=== PATIENT | male | born 1980 | race Caucasian/White ===

== ENCOUNTER 2020-10-26 11:34 | Inpatient (IN) | payer OTHER ==
[2020-10-26 16:29] VITALS: BMI 25.5
[2020-10-26] MEDS ORDERED: MAGNESIUM CITRATE 300 ML BOTTLE PO PRN (19:17)
[2020-10-26] MEDS ORDERED: NICOTINE POLACRILEX 2 MG GUM BUC PRN (19:17)
[2020-10-26] MEDS ORDERED: ACETAMINOPHEN 325 MG TABLET (FP) PO PRN ×2 (19:17)
[2020-10-26] MEDS ORDERED: METHOCARBAMOL 500 MG TABLET PO PRN (19:17)
[2020-10-26] MEDS ORDERED: IBUPROFEN 400 MG TABLET (FP) PO PRN (19:17)
[2020-10-26] MEDS ORDERED: MAG HYDROX/AL HYDROX/SIMETH 30 ML UNIT-DOSE CUP PO PRN (19:17)
[2020-10-26] MEDS ORDERED: MENTHOL/PHENOL 1 EACH UD MM PRN (19:17)
[2020-10-26] MEDS ORDERED: ONDANSETRON *ODT* 4 MG TABLET SL PRN (19:17)
[2020-10-26] MEDS ORDERED: MAGNESIUM HYDROX 2400MG/30ML ORAL SUSPENSION 30 ML CUP PO PRN (19:17)
[2020-10-26] MEDS ORDERED: chlordiazePOXIDE HCL 25 MG CAPSULE PO PRN (19:17)
[2020-10-26] MEDS: MELATONIN 5 MG TABLETS PO SCH (22:50)
[2020-10-26] MEDS: THIAMINE HCL 100 MG TABLET (FP) PO SCH (22:50)
[2020-10-26] MEDS: hydrOXYzine PAMOATE 25 MG CAPSULE (FP) PO SCH (22:50)
[2020-10-26] MEDS: chlordiazePOXIDE HCL 25 MG CAPSULE PO SCH (22:51)
[2020-10-27] MEDS ORDERED: METHADONE HCL 10 MG TABLET ONE (04:21)
[2020-10-27] MEDS ORDERED: METHADONE HCL 40 MG DISPERSABLE TABLET ONE (04:22)
[2020-10-27] MEDS: chlordiazePOXIDE HCL 25 MG CAPSULE PO SCH ×4 (05:37→22:51)
[2020-10-27] MEDS: hydrOXYzine PAMOATE 25 MG CAPSULE (FP) PO SCH ×5 (05:38→22:51)
[2020-10-27] MEDS ORDERED: METHADONE 40 MG, METHADONE 10 MG PO SCH (06:00)
[2020-10-27] MEDS ORDERED: METHADONE HCL 10 MG TABLET PO ONE (06:00)
[2020-10-27] MEDS: PANTOPRAZOLE 20 MG TABLET PO SCH (10:33)
[2020-10-27] MEDS: PRENATAL VITAMINS W/ FOLIC ACID TABLET (FP) PO SCH (10:33)
[2020-10-27 11:18] LABS: MCHC 33.3 g/dl (32.0-35.9); MEAN CELL VOLUME 78.2 fl (80-96); MEAN PLT VOLUME 9.8 fl (7.5-11.1); PLATELET COUNT 172 K/MM3 (134-434); RBC 4.61 M/mm3 (4.00-5.60); RDW 15.8 % (11.9-15.9); WHITE BLOOD COUNT 3.3 K/mm3 (4.0-10.0)
[2020-10-27 11:21] LABS: POTASSIUM 4.3 mmol/L (3.5-5.1)
[2020-10-27 11:31] LABS: ALBUMIN 2.9 g/dl (3.4-5.0)
[2020-10-27 11:34] LABS: CREATININE 0.8 mg/dL (0.55-1.3)
[2020-10-27 11:35] LABS: TOT PROT 6.4 g/dl (6.4-8.2)
[2020-10-27 11:36] LABS: BILIRUBIN,TOTAL 1.3 mg/dL (0.2-1)
[2020-10-27] MEDS: CALCIUM CARBONATE 650 MG TABLET PO SCH (22:50)
[2020-10-27] MEDS: MELATONIN 5 MG TABLETS PO SCH (22:50)
[2020-10-27] MEDS: THIAMINE HCL 100 MG TABLET (FP) PO SCH (22:51)
[2020-10-28] MEDS ORDERED: chlordiazePOXIDE HCL 25 MG CAPSULE PO SCH (05:00)
[2020-10-28] MEDS: hydrOXYzine PAMOATE 25 MG CAPSULE (FP) PO SCH ×5 (07:02→22:44)
[2020-10-28] MEDS ORDERED: METHADONE HCL 10 MG TABLET PO ONE (09:44)
[2020-10-28] MEDS ORDERED: LORazepam 1 MG TABLET PO PRN (10:33)
[2020-10-28] MEDS: CALCIUM CARBONATE 650 MG TABLET PO SCH ×2 (10:34→22:44)
[2020-10-28] MEDS: PRENATAL VITAMINS W/ FOLIC ACID TABLET (FP) PO SCH (10:36)
[2020-10-28] MEDS ORDERED: METHADONE 40 MG, METHADONE 10 MG PO ONE (10:45)
[2020-10-28] MEDS ORDERED: METHADONE HCL 40 MG DISPERSABLE TABLET ONE (11:55)
[2020-10-28] MEDS ORDERED: METHADONE HCL 10 MG TABLET ONE (11:55)
[2020-10-28] MEDS: PANTOPRAZOLE 20 MG TABLET PO SCH (11:57)
[2020-10-28 12:31] LABS: BILIRUBIN,DIRECT 0.7 mg/dL (0.0-0.2)
[2020-10-28 12:32] LABS: BILIRUBIN,TOTAL 1.7 mg/dL (0.2-1); TOT PROT 6.5 g/dl (6.4-8.2)
[2020-10-28] MEDS: LORazepam 2 MG TABLET PO SCH ×2 (17:52→22:43)
[2020-10-28 22:43] LABS: PH,URINE 7.5 (5.0-8.0); URINE APPEARANCE TURBID; URINE BILIRUBIN 1+ (NEGATIVE); URINE COLOR DK YELLOW; URINE GLUCOSE (UA) NEGATIVE (NEGATIVE); URINE KETONE NEGATIVE (NEGATIVE); URINE LEUK ESTERASE NEGATIVE (NEGATIVE); URINE NITRITE NEGATIVE (NEGATIVE); URINE PROTEIN NEGATIVE (NEGATIVE)
[2020-10-28] MEDS: MELATONIN 5 MG TABLETS PO SCH (22:44)
[2020-10-28] MEDS: THIAMINE HCL 100 MG TABLET (FP) PO SCH (22:44)
[2020-10-28] MEDS: BISMUTH SUBSALICYLATE 524 MG/30 ML UD PO PRN (22:45)
[2020-10-29] MEDS ORDERED: chlordiazePOXIDE HCL 10 MG CAPSULE PO PRN
[2020-10-29] MEDS ORDERED: METHADONE HCL 10 MG TABLET ONE (04:40)
[2020-10-29] MEDS ORDERED: METHADONE HCL 40 MG DISPERSABLE TABLET ONE (04:41)
[2020-10-29] MEDS ORDERED: chlordiazePOXIDE HCL 10 MG CAPSULE PO SCH (05:00)
[2020-10-29] MEDS: hydrOXYzine PAMOATE 25 MG CAPSULE (FP) PO SCH ×3 (05:16→14:49)
[2020-10-29] MEDS: LORazepam 1 MG TABLET PO SCH ×2 (05:16→10:22)
[2020-10-29] MEDS: BISMUTH SUBSALICYLATE 524 MG/30 ML UD PO PRN ×2 (05:17→10:25)
[2020-10-29] MEDS ORDERED: METHADONE 40 MG, METHADONE 10 MG PO SCH (06:00)
[2020-10-29] MEDS ORDERED: METHADONE HCL 40 MG DISPERSABLE TABLET PO SCH (06:00)
[2020-10-29] MEDS: PRENATAL VITAMINS W/ FOLIC ACID TABLET (FP) PO SCH (10:21)
[2020-10-29] MEDS: CALCIUM CARBONATE 650 MG TABLET PO SCH (10:22)
[2020-10-29] MEDS: PANTOPRAZOLE 20 MG TABLET PO SCH (10:22)
[2020-10-29 10:39] LABS: POTASSIUM 4.4 mmol/L (3.5-5.1)
[2020-10-29 10:47] LABS: CALCIUM 8.5 mg/dL (8.5-10.1)
[2020-10-29 10:51] LABS: CREATININE 0.9 mg/dL (0.55-1.3)
[2020-10-29 10:52] LABS: BILIRUBIN,TOTAL 1.8 mg/dL (0.2-1)
[2020-10-29 10:53] LABS: TOT PROT 6.8 g/dl (6.4-8.2)
[2020-10-29 10:55] LABS: INR 1.04 (0.83-1.09); PROTHROMBIN TIME (PATIENT) 12.8 SEC (9.7-13.0)
[2020-10-29 13:12] VITALS: BP 116/61; PULSE 63; TEMP 97.8
[2020-10-30] MEDS ORDERED: LORazepam 0.5 MG TABLET PO PRN
[2020-10-30] MEDS ORDERED: LORazepam 0.5 MG TABLET PO SCH (05:00)
[2020-10-30] MEDS ORDERED: chlordiazePOXIDE HCL 10 MG CAPSULE PO SCH (05:00)
[2020-10-30] MEDS ORDERED: ENOXAPARIN NA (PORCINE) 40 MG/0.4 ML DISP.SYRIN SQ SCH (10:00)
[2020-10-31] MEDS ORDERED: chlordiazePOXIDE HCL 10 MG CAPSULE PO ONE (05:00)
== END 2020-10-29 18:12 | disposition short-term general hospital (02) | DRG 773 ==
LOC: YASAS 11:34 → Y3N 19:04
PROVIDERS: ADMIT Allergy & Immunology; ATTEND Allergy & Immunology
PROC: HZ2ZZZZ Detoxification Services for Substance Abuse Treatment (ICD-10-PCS; principal; 2020-10-26)
DX: F10.230 Alcohol dependence with withdrawal, uncomplicated (principal); F11.20 Opioid dependence, uncomplicated; F19.20 Other psychoactive substance dependence, uncomplicated; F12.20 Cannabis dependence, uncomplicated; F17.210 Nicotine dependence, cigarettes, uncomplicated; F19.280 Other psychoactive substance dependence with psychoactive substance-induced anxiety disorder; F19.24 Other psychoactive substance dependence with psychoactive substance-induced mood disorder; E83.51 Hypocalcemia; K21.9 Gastro-esophageal reflux disease without esophagitis; R74.01 Elevation of levels of liver transaminase levels; R94.5 Abnormal results of liver function studies; Z56.0 Unemployment, unspecified
CPT/HCPCS: 36415; 80053; 80076; 81003; 82140; 85027; 85610; 86780; 86803; 93005; 93010; C9803; U0003

== ENCOUNTER 2020-10-29 13:29 | Inpatient (IN) | payer OTHER ==
[2020-10-29 14:33] LABS: BASO % 1.7 % (0-2.0); EOS % 1.3 % (0-4.5); HEMATOCRIT 39.9 % (35.4-49); HEMOGLOBIN 13.2 GM/dL (11.7-16.9); LYMPH % 32.9 % (8-40); MCH 26.1 pg (25.7-33.7); MCHC 33.2 g/dl (32.0-35.9); MEAN CELL VOLUME 78.7 fl (80-96); MEAN PLT VOLUME 9.6 fl (7.5-11.1); MONO % 12.1 % (3.8-10.2); PLATELET COUNT 190 K/MM3 (134-434); RBC 5.06 M/mm3 (4.00-5.60); RDW 16.6 % (11.9-15.9); WHITE BLOOD COUNT 3.8 K/mm3 (4.0-10.0)
[2020-10-29 14:46] LABS: PH,URINE 7.5 (5.0-8.0); URINE APPEARANCE CLOUDY; URINE BILIRUBIN 1+ (NEGATIVE); URINE COLOR DK YELLOW; URINE GLUCOSE (UA) NEGATIVE (NEGATIVE); URINE KETONE NEGATIVE (NEGATIVE); URINE LEUK ESTERASE NEGATIVE (NEGATIVE); URINE NITRITE NEGATIVE (NEGATIVE); URINE PROTEIN NEGATIVE (NEGATIVE)
[2020-10-29 14:49] LABS: CHLORIDE 100 mmol/L (98-107); POTASSIUM 4.1 mmol/L (3.5-5.1); SODIUM 135 mmol/L (136-145)
[2020-10-29 14:51] LABS: ALBUMIN 3.1 g/dl (3.4-5.0); ANION GAP 6 MMOL/L (8-16); CALCIUM 8.8 mg/dL (8.5-10.1); CO2 29 mmol/L (21-32)
[2020-10-29 14:52] LABS: GLUCOSE,RANDOM 104 mg/dL (74-106); MAGNESIUM 1.8 mg/dL (1.8-2.4)
[2020-10-29 14:54] LABS: LIPASE 212 U/L (73-393)
[2020-10-29 14:55] LABS: CREATININE 0.8 mg/dL (0.55-1.3)
[2020-10-29 14:56] LABS: BILIRUBIN,TOTAL 2.2 mg/dL (0.2-1)
[2020-10-29 14:57] LABS: ALK PHOS 756 U/L (45-117)
[2020-10-29 15:12] LABS: SGOT/AST 1981 U/L (15-37); SGPT/ALT 2552 U/L (13-61)
[2020-10-29 15:52] LABS: COCAINE, UR NEGATIVE ng/ml (CUTOFF=300)
[2020-10-29 15:53] LABS: OPIATES, URI NEGATIVE ng/ml (CUTOFF=300); PHENCYCLIDINE,URINE NEGATIVE ng/ml (CUTOFF=25)
[2020-10-29 15:57] LABS: URINE AMPHETAMINES NEGATIVE ng/ml (CUTOFF=500); URINE BARBITURATES NEGATIVE ng/ml (CUTOFF=200)
[2020-10-29 15:59] LABS: ANISOCYTOSIS 0; MACROCYTOSIS 0; PLATELET ESTIMATE NORMAL
[2020-10-29 15:59] LABS: METHADONE, UR POSITIVE ng/ml (CUTOFF=300); URINE BENZODIAZEPINES POSITIVE ng/ml (CUTOFF=200)
[2020-10-29] MEDS ORDERED: MELATONIN 5 MG TABLETS PO ONE (22:52)
[2020-10-29] MEDS ORDERED: hydrOXYzine PAMOATE 25 MG CAPSULE (FP) PO ONE ×2 (22:52→23:03)
[2020-10-29] MEDS ORDERED: MELATONIN 5 MG TABLETS ONE (23:03)
[2020-10-29] MEDS ORDERED: LORazepam 2 MG/ML SDV VIAL ONE (23:03)
[2020-10-29] MEDS: LORazepam 2 MG/ML SDV VIAL IVPUSH PRN (23:16)
[2020-10-30 03:33] VITALS: BMI 23.3
[2020-10-30] MEDS ORDERED: THIAMINE HCL 200 MG/2 ML VIAL IVPB ONE (07:56)
[2020-10-30] MEDS ORDERED: FOLIC ACID 1 MG TABLET (FP) PO SCH (10:00)
[2020-10-30] MEDS ORDERED: ENOXAPARIN NA (PORCINE) 40 MG/0.4 ML DISP.SYRIN SQ SCH (10:00)
[2020-10-30] MEDS ORDERED: THIAMINE HCL 100 MG TABLET (FP) PO SCH (10:00)
[2020-10-30] MEDS: LORazepam 2 MG/ML SDV VIAL IVPUSH PRN (11:22)
[2020-10-30] MEDS ORDERED: METHADONE HCL 10 MG TABLET PO ONE (11:45)
[2020-10-30 11:56] LABS: BASO % 1.2 % (0-2.0); EOS % 0.9 % (0-4.5); HEMATOCRIT 44.2 % (35.4-49); HEMOGLOBIN 14.8 GM/dL (11.7-16.9); LYMPH % 30.9 % (8-40); MCH 26.5 pg (25.7-33.7); MCHC 33.5 g/dl (32.0-35.9); MEAN PLT VOLUME 10.1 fl (7.5-11.1); MONO % 12.6 % (3.8-10.2); NEUT % 54.4 % (42.8-82.8); PLATELET COUNT 204 K/MM3 (134-434); RDW 16.6 % (11.9-15.9); WHITE BLOOD COUNT 4.8 K/mm3 (4.0-10.0)
[2020-10-30 12:23] LABS: CALCIUM 8.9 mg/dL (8.5-10.1)
[2020-10-30 12:24] LABS: BLOOD UREA NITROGEN 9.2 mg/dL (7-18); MAGNESIUM 2.1 mg/dL (1.8-2.4)
[2020-10-30 12:27] LABS: CREATININE 0.9 mg/dL (0.55-1.3); PHOSPHOROUS 3.5 mg/dL (2.5-4.9)
[2020-10-30 12:30] LABS: POTASSIUM 4.4 mmol/L (3.5-5.1)
[2020-10-30 13:15] LABS: PLATELET ESTIMATE NORMAL
[2020-10-30 15:53] VITALS: BP 126/89; PULSE 84; TEMP 98
[2020-10-30] MEDS ORDERED: LORazepam 1 MG TABLET PO PRN (17:13)
[2020-10-30 17:59] LABS: ALBUMIN 3.4 g/dl (3.4-5.0)
[2020-10-30 18:01] LABS: BILIRUBIN,DIRECT 2.3 mg/dL (0.0-0.2)
[2020-10-30 18:03] LABS: BILIRUBIN,TOTAL 3.2 mg/dL (0.2-1); TOT PROT 7.5 g/dl (6.4-8.2)
[2020-10-31] MEDS ORDERED: METHADONE HCL 10 MG TABLET PO SCH (06:00)
[2020-10-31] MEDS ORDERED: METHADONE 40 MG, METHADONE 10 MG PO SCH (06:00)
[2020-10-31] MEDS ORDERED: THIAMINE HCL 100 MG TABLET (FP) PO SCH (10:00)
== END 2020-10-30 18:58 | disposition left against medical advice (07) | DRG 861 ==
LOC: JER 13:29 → JERBED 15:53 → J8W 10-30 02:59
PROVIDERS: ADMIT Internal Medicine; ATTEND Internal Medicine
PROC: HZ91ZZZ Pharmacotherapy for Substance Abuse Treatment, Methadone Maintenance (ICD-10-PCS; principal; 2020-10-30)
DX: R74.01 Elevation of levels of liver transaminase levels (principal); K21.9 Gastro-esophageal reflux disease without esophagitis; G47.00 Insomnia, unspecified; B19.20 Unspecified viral hepatitis C without hepatic coma; F14.10 Cocaine abuse, uncomplicated; F11.20 Opioid dependence, uncomplicated; E80.6 Other disorders of bilirubin metabolism; D72.819 Decreased white blood cell count, unspecified; F10.10 Alcohol abuse, uncomplicated
CPT/HCPCS: 36415; 76705-TC; 80048; 80053; 80074; 80076; 80307; 81003; 82140; 82550; 83690; 83735; 84100; 85025; 93005; 93010; 99285-25; C9803; U0003